=== PATIENT | female | born 1945 | race Caucasian/White ===

== ENCOUNTER 2021-03-04 19:22 | Emergency (ER) | payer OTHER, SELFPAY ==
--- NOTE | ~2021-03-04 | XR_ITS ---
EXAMINATION: XR elbow LT min 3V DATE: 03/04/2021 19:59 INDICATION: Left elbow pain, initial encounter TECHNIQUE: Anteroposterior, two oblique and lateral views of the left elbow were obtained. COMPARISON: None. FINDINGS: Bone alignment is normal. There is an intra-articular fracture at the lateral aspect of the radial head. An elbow joint effusion is present. No additional acute osseous findings are evident. IMPRESSION: 1. Acute radial head fracture. 2. Elbow joint effusion. Reviewed, dictated and finalized at location A.
[2021-03-04 19:40] VITALS: BP 174/84; PULSE 80; RESP 20; TEMP 36.9; O2SAT 99
--- NOTE | 2021-03-04 19:40 | ED.FALL ---
HPI - Fall General Chief Complaint: Fall Stated Complaint: Fall Time Seen by Provider: 03/04/21 19:40 Source: patient and RN notes reviewed Mode of arrival: ambulatory Limitations: no limitations History of Present Illness HPI Narrative: 75-year-old female presents concern for left elbow pain, swelling after a fall today at 3:00. Reports hitting her left elbow on concrete during the fall. She denies any other injury, head trauma. She denies decreased sensation, strength in her lower arm or hand. MD complaint: fall Related Data Home Medications Medication Instructions Recorded Confirmed amlodipine 5 mg PO DAILY 03/04/21 03/04/21 aspirin [Low-Dose Aspirin] 81 mg PO DAILY 03/04/21 03/04/21 carvedilol 25 mg PO BID 03/04/21 03/04/21 cholecalciferol (vitamin D3) 25 mcg PO DAILY 03/04/21 03/04/21 hydrocodone-acetaminophen 1 tablet PO Q8H PRN 03/04/21 03/04/21 losartan-hydrochlorothiazide 1 tablet PO DAILY 03/04/21 03/04/21 fwqwbxes-sqo-spej-FA-lutein 1 tablet PO DAILY 03/04/21 03/04/21 [Centrum Silver Women] pravastatin 40 mg PO DAILY 03/04/21 03/04/21 Allergies Allergy/AdvReac Type Severity Reaction Status Date / Time codeine AdvReac Mild Nausea and Unverified 03/04/21 19:50 Vomiting Review of Systems Review of Systems: Narrative: CONSTITUTIONAL: Denies malaise, chills, sweats, or fever. CARDIOVASCULAR: Denies chest pain, palpitations, or edema. RESPIRATORY: Denies cough or dyspnea. SKIN: Denies abrasions, lacerations MUSCULOSKELETAL: Reports left elbow pain, swelling, bruising NEUROLOGIC: Denies numbness, weakness All systems reviewed & are unremarkable except as noted in HPI and below PMFSH Comments At time of signature, agree with nursing past medical, surgical, social and family history. There is no relevant family history pertinent to the presenting complaint Exam Narrative: Exam Narrative: GENERAL: Well-appearing, well-nourished, and in no acute distress. HEAD: Normocephalic, atraumatic. EYES: PERRLA, conjunctivae clear NECK: Supple. CHEST: Speaks in full sentences. No respiratory distress. HEART: Regular rate and rhythm. Normal and equal peripheral pulses. EXTREMITIES: Left elbow has normal sensation, limited range of motion. Mild edema and ecchymosis. 4/5 strength with elbow flexion and extension. Normal sensation with sensitivity to light touch and pain. Lateral tenderness. No open wounds, no skin tenting, no devitalized tissue or atrophy, no trophic changes, no obvious deformity, alignment normal, nearby joints and structures intact. Distal pulses palpable and equal bilaterally, skin warm, dry, pink. Capillary refill less than 3 seconds. SKIN: Warm, dry, no rash. NEURO: Alert and oriented x3. PSYCH: Normal mood and affect Course Course Emergency Course: Patient is aware of diagnosis, understands and agrees to treatment plan. Anticipatory guidance given. Patient agrees to follow-up as directed and is aware of reasons to seek care at the emergency department. Portions of this record may have been created with voice recognition software Vital Signs Vital signs: Vital Signs Temperature 98.5 F 03/04/21 19:40 Pulse Rate 80 03/04/21 19:40 Respiratory Rate 20 03/04/21 19:40 Blood Pressure 174/84 H 03/04/21 19:40 Pulse Oximetry 99 03/04/21 19:40 Temperature 98.5 F 03/04/21 19:40 Pulse Rate 80 03/04/21 19:40 Respiratory Rate 20 03/04/21 19:40 Blood Pressure 174/84 H 03/04/21 19:40 Pulse Oximetry 99 03/04/21 19:40 Reviewed. Procedures Orthopedic Splinting/Casting Injury #1: Splinting/Casting Date: 03/04/21 Splinting/Casting Time: 20:22 Side: left Upper Extremity Injury Location: elbow Splint: customized in ED Other Orthopedic Equipment: other (sling) MDM - Fall MDM Narrative Medical decision making narrative: Patients injury and pain is consistent with musculoskeletal etiology. No signs of neurological or vascular comprom
== END 2021-03-04 20:27 | disposition home or self-care (01) ==
PROVIDERS: Emergency Provider Nurse Practitioner; PCP Internal Medicine
DX: S52.125A Nondisplaced fracture of head of left radius, initial encounter for closed fracture (principal); W19.XXXA Unspecified fall, initial encounter; E78.00 Pure hypercholesterolemia, unspecified
CPT/HCPCS: 73080; 99204; A4565; G0463

== ENCOUNTER 2021-03-08 13:04 | Outpatient (CLI) | payer OTHER, SELFPAY ==
--- NOTE | ~2021-03-08 | XR_ITS ---
XR elbow LT min 3V DATE: 03/08/2021 13:11 INDICATION: Left elbow pain TECHNIQUE: 4 views COMPARISON: None FINDINGS: Mild radial head fracture deformity. There is mild elbow joint effusion. There is prominent dorsal olecranon process spur. 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 IMPRESSION: Mild radial head fracture deformity, mild joint effusion Osteoarthritis Dorsal olecranon process spur Reviewed, dictated and finalized at location A.
== END 2021-03-08 13:05 | disposition home or self-care (01) ==
LOC: ANHBWCIMG 13:05
PROVIDERS: PCP Internal Medicine; Visit Provider Orthopaedic Surgery
DX: M25.422 Effusion, left elbow (principal); M19.022 Primary osteoarthritis, left elbow; M25.721 Osteophyte, right elbow
CPT/HCPCS: 73080

== ENCOUNTER 2021-03-29 12:49 | Outpatient (CLI) | payer OTHER, SELFPAY ==
--- NOTE | ~2021-03-29 | XR_ITS ---
EXAMINATION: XR elbow LT min 3V DATE: 03/29/2021 12:59 INDICATION: Left elbow pain TECHNIQUE: Anteroposterior, two oblique and lateral views of the left elbow were obtained. COMPARISON: 03/08/2021 and 03/04/2021 FINDINGS: Again seen is an irregular cortical contour along one side of the articular surface of the left radia l head which has a chronic appearance, and may represent sequela of old fracture. Bone alignment is n ormal. No acute fracture. Mild osteoarthritis at the left elbow with mild nonuniform joint space narr owing at the radiocapitellar articulation and tiny marginal osteophytes at the proximal radioulnar an d ulnar trochlear articulations. Moderate-sized olecranon spur. Minimal heterotopic ossification over lying the lateral epicondyle likely along the common extensor tendon wad. Soft tissues are unremarkab le with no elbow joint effusion. IMPRESSION: 1. Mild osteoarthritis at the left elbow. 2. Chronic appearing irregular cortical contour along a portion of the articular rim of the left radi al head which suggests an old healed fracture deformity. Correlate with clinical history. 3. Moderate-sized olecranon spur and small amount of heterotopic ossification along the proximal comm on extensor tendon wad which could also be due to degenerative enthesopathy or sequela of old trauma. Reviewed, dictated and finalized at location A. IMPRESSION: 1. Mild osteoarthritis at the left elbow. 2. Chronic appearing irregular cortical contour along a portion of the articula r rim of the left radial head which suggests an old healed fracture deformity. Correlate with clinical history. 3. Moderate-sized olecranon spur and small amount of heterotopic ossification a long the proximal common extensor tendon wad which could also be due to degener ative enthesopathy or sequela of old trauma.
== END 2021-03-29 12:50 | disposition home or self-care (01) ==
LOC: ANHBWCIMG 12:50
PROVIDERS: PCP Internal Medicine; Visit Provider Orthopaedic Surgery
DX: M19.022 Primary osteoarthritis, left elbow (principal)
CPT/HCPCS: 73080